=== PATIENT | female | born 1995 | race Two or more races ===

== ENCOUNTER 2017-04-09 17:36 | Emergency (ER) | payer MEDICAID, OTHER ==
[~2017-04-09] VITALS: Ht 172.7 cm; Wt 113.4 kg
[2017-04-09] MEDS ORDERED: Sodium Chloride 500ML 500 ML IV ONE (17:45)
--- NOTE | 2017-04-09 18:51 | Emergency Room Report ---
History of Present Illness General Chief Complaint: Abdominal Pain Source: Patient, EMS Present Illness HPI 22-year-old female presents to the emergency department complaining of 10 out of 10 in severity lower abdominal cramping in in addition to low back pain x2 days. Patient reports that she is approximately 8 weeks this was determined at an outpatient gynecological facility. Patient had 3 positive urine test and had blood work performed at clinic. Patient states she did not have ultrasound performed because she is between insurances at the moment. She denies vaginal bleeding however she reports progressive increase in her cramping over the course of 2 days. Patient reports history of ovarian cysts and was told that she would have a difficult time becoming and this was a surprise to her when she got up she was. Patient also reports body- aches, fevers x3 days measured at 102.2 at home. Since she's been taking Tylenol she also reports increasing fatigue, cough and sore throat. Patient states that she is not up-to-date with this years flu vaccination. She reports that this is her first therefore she is . She reports urinary urgency, intermittent dysuria. Denies urgency or hematuria. She reports nausea with one episode of vomiting 2 days ago. decreased appetite x 2 weeks. Denies neck pain, neck stiffness or photophobia. Denies blood in the vomit or stool. She denies constipation or diarrhea. Denies CP, Palpitations, LOC, AMS, dizziness, Changes in Vision, Sensation, paresthesias, or a sudden severe headache. Allergies: Coded Allergies: No Known Allergies (Unverified , 04/09/17) Patient History Past Medical History: see triage record Past Surgical History: none Pertinent Family History: none Last Menstrual Period: 8 weeks Now: Yes - 8 weeks Immunizations: UTD Reviewed Nursing Documentation: PMH: Agreed, PSxH: Agreed Nursing Documentation-PMH Past Medical History: No History, Except For Review of Systems All Other Systems: negative except mentioned in HPI Physical Exam Vital Signs Date Time Temp Pulse Resp B/P (MAP) Pulse Ox O2 Delivery O2 Flow Rate FiO2 04/09/17 17:28 99.0 100 18 190/100 99 Room Air Sp02 EP Interpretation: reviewed, normal General Appearance: no apparent distress, alert, GCS 15, non-toxic Head: normocephalic, atraumatic Eyes: bilateral eye normal inspection, bilateral eye PERRL ENT: hearing grossly normal, normal voice, TMs + canals normal, uvula midline, pharyngeal erythema Neck: full range of motion, no meningismus, no bony tend Respiratory: chest non-tender, lungs clear, normal breath sounds, speaking full sentences Cardiovascular #1: regular rate, rhythm, tachycardia Gastrointestinal: normal bowel sounds, non tender, soft, no guarding, no rebound, other - Negative [place] signs, Negative MacBurney's sign, Negative Rosvigns Sign, Negative Psoas, No Peritoneal signs. Rectal: deferred Genitourinary: normal inspection, no CVA tenderness Musculoskeletal: back normal, gait/station normal, normal range of motion, non- tender Neurologic: alert, oriented x3, responsive, motor strength/tone normal, sensory intact, speech normal Skin: normal color, no rash, warm/dry, well hydrated Medical Decision Making PA Attestation Dr. lagos is my supervising Physician whom patient management has been discussed with. Diagnostic Impression: Primary Impression: Abdominal pain Qualified Codes: R10.84 - Generalized abdominal pain Additional Impressions: Positive test Viral syndrome Threatened in early ER Course 22-year-old female presents to the emergency department complaining of 10 out of 10 in severity lower abdominal cramping in in addition to low back pain x2 days. Patient reports that she is approximately 8 weeks this was determined at an outpatient gynecological facility. Patient had 3 positive urine test and had blood work performed at clinic. Patient states she did not have ultrasound performed because she is between insurances at the moment. She denies vaginal bleeding however she reports progressive increase in her cramping over the course of 2 days. Patient reports history of ovarian cysts and was told that she would have a difficult time becoming and this was a surprise to her when she got up she was. Patient also reports body- aches, fevers x3 days measured at 102.2 at home. Since she's been taking Tylenol she also reports increasing fatigue, cough and sore throat. Patient states that she is not up-to-date with this years flu vaccination. She reports that this is her first therefore she is . She reports urinary urgency, intermittent dysuria. Denies urgency or hematuria. She reports nausea with one episode of vomiting 2 days ago. decreased appetite x 2 weeks. Denies neck pain, neck stiffness or photophobia. Denies blood in the vomit or stool. She denies constipation or diarrhea. Denies CP, Palpitations, LOC, AMS, dizziness, Changes in Vision, Sensation, paresthesias, or a sudden severe headache. Ddx considered but are not limited to: Fibroid, ectopic , Fibroid, Spontaneous ,Ovarian cyst, Viral syndrome, influenza, Viral GE just to name a few. Vital signs: are WNL, pt. is afebrile -- triage bp was elevated, repeat VS were wnl. ORDERS: -Urine hcg- Positive -serum Hcg Quant: 805 - Blood/RH type and screen- see attached labs -Pelvic US complete- Gestational Sac noted intrauterine estimated at 4 weeks gestation. no HR at this time. ED INTERVENTIONS: -NS Bolus -Tylenol PO DISCHARGE: At this time pt. is stable for d/c to home. Will provide printed patient care instructions, and any necessary prescriptions. Care plan and follow up instructions have been discussed with the patient prior to discharge. Labs Test 04/09/17 19:00 White Blood Count 5.8 K/UL (4.8-10.8) Red Blood Count 4.92 M/UL (4.20-5.40) Hemoglobin 12.5 G/DL (12.0-16.0) Hematocrit 40.6 % (37.0-47.0) Mean Corpuscular Volume 83 FL (80-99) Mean Corpuscular Hemoglobin 25.5 PG (27.0-31.0) Mean Corpuscular Hemoglobin Concent 30.8 G/DL (32.0-36.0) Red Cell Distribution Width 12.8 % (11.6-14.8) Platelet Count 212 K/UL (150-450) Mean Platelet Volume 8.0 FL (6.5-10.1) Neutrophils (%) (Auto) 64.0 % (45.0-75.0) Lymphocytes (%) (Auto) 21.3 % (20.0-45.0) Monocytes (%) (Auto) 13.7 % (1.0-10.0) Eosinophils (%) (Auto) 0.0 % (0.0-3.0) Basophils (%) (Auto) 1.0 % (0.0-2.0) Urine Color Yellow Urine Appearance Clear Urine pH 6 (4.5-8.0) Urine Specific [place] 1.020 (1.005-1.035) Urine Protein 1+ (NEGATIVE) Urine Glucose (UA) Negative (NEGATIVE) Urine Ketones 3+ (NEGATIVE) Urine Occult Blood 3+ (NEGATIVE) Urine Nitrite Negative (NEGATIVE) Urine Bilirubin Negative (NEGATIVE) Urine Urobilinogen 1 MG/DL (0.0-1.0) Urine Leukocyte Esterase 1+ (NEGATIVE) Urine RBC 5-10 /HPF (0 - 2) Urine WBC 2-4 /HPF (0 - 2) Urine Squamous Epithelial Cells Few /LPF (NONE/OCC) Urine Bacteria Few /HPF (NONE) Sodium Level 136 MMOL/L (136-145) Potassium Level 3.5 MMOL/L (3.5-5.1) Chloride Level 101 MMOL/L (98-107) Carbon Dioxide Level 24 MMOL/L (21-32) Anion Gap 11 mmol/L (5-15) Blood Urea Nitrogen 10 mg/dL (7-18) Creatinine 0.7 MG/DL (0.55-1.30) Estimat Glomerular Filtration Rate > 60 mL/min (>60) Glucose Level 88 MG/DL (74-106) Calcium Level 7.9 MG/DL (8.5-10.1) Total Bilirubin 0.3 MG/DL (0.2-1.0) Aspartate Amino Transf (AST/SGOT) 36 U/L (15-37) Alanine Aminotransferase (ALT/SGPT) 37 U/L (12-78) Alkaline Phosphatase 67 U/L (46-116) Total Protein 8.0 G/DL (6.4-8.2) Albumin 3.9 G/DL (3.4-5.0) Globulin 4.1 g/dL Albumin/Globulin Ratio 1.0 (1.0-2.7) Lipase 114 U/L (73-393) Human Chorionic Gonadotropin, Quant 805 mIU/mL (1-6) CT/MRI/US Diagnostic Results CT/MRI/US Diagnostic Results : Imaging Test Ordered: Pelvic US complete Impression - Gestational Sac noted intrauterine estimated at 4 weeks gestation. no HR at this time. Last Vital Signs Date Time Temp Pulse Resp B/P (MAP) Pulse Ox O2 Delivery O2 Flow Rate FiO2 04/09/ 17:28 99.0 100 18 190/100 99 Room Air Disposition: HOME, SELF-CARE Condition: Stable Scripts Dextromethorphan Hbr (TUSSIN COUGH) 15 Mg Capsule 15 MG PO Q6HR, #118 CAP Prov: Carlee Rubio 04/09/17 Vit #91/Fe Fum/Fa/Dha ( + DHA COMBO PACK) 1 Each Combo..pkg 1 EACH PO DAILY, #1 PACK 3 Refills Prov: Carlee Rubio 04/09/17 Acetaminophen* (TYLENOL EXTRA STRENGTH*) 500 Mg Tablet 500 MG ORAL Q6H Y for Mild Pain/Temp > 100.5, #30 TAB 0 Refills Prov: Carlee Rubio 04/09/17 Patient Instructions: Abdominal Pain During , Threatened Miscarriage, [id number] Additional Instructions: Take medications as directed. Follow up with a OBGYN within 3 days, even if your symptoms have resolved. --- [facility] , Ultrasound showed : Intrauterine gestational sac of approx 4 weeks , with no HR detected at this time. Return sooner to ED if new symptoms occur, or current symptoms become worse. - Please note that this Emergency Department Report was dictated using [employer] assistant technology software, occasionally this can lead to erroneous entry secondary to interpretation by the dictation equipment. Carlee Rubio Apr 09, 2017 18:51
[2017-04-09 19:44] LABS: HEMATOCRIT 40.6 % (37.0-47.0); HEMOGLOBIN 12.5 G/DL (12.0-16.0); LYMPHOCYTES % (AUTO) 21.3 % (20.0-45.0); MEAN CORPUSCULAR VOLUME 83 FL (80-99); MONOCYTES % (AUTO) 13.7 % (1.0-10.0); PLATELET COUNT 212 K/UL (150-450); RED BLOOD COUNT 4.92 M/UL (4.20-5.40); RED CELL DISTRIBUTION WIDTH 12.8 % (11.6-14.8); WHITE BLOOD COUNT 5.8 K/UL (4.8-10.8)
[2017-04-09 19:45] LABS: APPEARANCE,URINE CLEAR; BILIRUBIN, URINE NEGATIVE (NEGATIVE); GLUCOSE, URINE (UA) NEGATIVE (NEGATIVE); KETONES,URINE 3+ (NEGATIVE); LEUKOCYTE ESTERASE ,URINE 1+ (NEGATIVE); NITRITE,URINE NEGATIVE (NEGATIVE); PH,URINE 6 (4.5-8.0); PROTEIN,URINE 1+ (NEGATIVE); UROBILINOGEN,URINE 1 MG/DL (0.0-1.0)
[2017-04-09 19:47] LABS: COLOR,URINE YELLOW
[2017-04-09 19:56] LABS: ANION GAP 11 mmol/L (5-15); BLOOD UREA NITROGEN 10 mg/dL (7-18); CALCIUM 7.9 MG/DL (8.5-10.1); CARBON DIOXIDE 24 MMOL/L (21-32); CHLORIDE 101 MMOL/L (98-107); CREATININE 0.7 MG/DL (0.55-1.30); POTASSIUM 3.5 MMOL/L (3.5-5.1); SODIUM 136 MMOL/L (136-145)
[2017-04-09 20:01] LABS: ALANINE AMINOTRANSFERASE 37 U/L (12-78); ALBUMIN 3.9 G/DL (3.4-5.0); ALKALINE PHOSPHATASE 67 U/L (46-116); ASPARTATE AMINO TRANSFERASE 36 U/L (15-37); BILIRUBIN,TOTAL 0.3 MG/DL (0.2-1.0)
[2017-04-09 22:13] VITALS: BP_SYST 10; BP_SYST 110; BP_DIAS 78
[2017-04-09] MEDS ORDERED: TYLENOL EXTRA500 MG ORAL (22:44)
[2017-04-09] MEDS ORDERED: PRENATAL + DHA1 EAC1 PO (22:44)
[2017-04-09] MEDS ORDERED: TUSSIN COUGH15 MG PO (22:49)
[2017-04-09 22:58] VITALS: BP 101/76
[2017-04-09 23:05] VITALS: BP 101/76
--- NOTE | 2017-04-10 12:32 | Diagnostic Imaging Report ---
Indication: Pelvic pain Technique: Grayscale and duplex Doppler imaging of the pelvis performed utilizing a transabdominal scan and endovaginal scan. Comparison: None Findings: Tiny cystic structure noted in the central part of the uterus with surrounding double decidual sign. There is no yolk sac or pole identified. The measurement of the cyst is too small to date. Correlation with quantitative beta hCG recommended. Also while follow-up ultrasound suggested. The ovaries are seen and appear normal with dopplerable blood flow. The right ovary measures 1.9 x 1.7 x 1.5 cm. Left ovary 2.3 x 2.4 x 1.8 cm. There is no free fluid. IMPRESSION: Possible early intrauterine . Findings at this point are nonspecific. Ectopic is not excluded. Correlation with quantitative beta hCG obtained in series and follow-up ultrasound recommended. [facility] has communicated the preliminary results to the Emergency Department. Their findings are largely concordant with this report.
== END 2017-04-09 23:05 | disposition home or self-care (01) ==
LOC: EDBD 17:36 → EMR 17:50
DX: O26.891 Other specified pregnancy related conditions, first trimester (principal); M54.5 Low back pain; B34.9 Viral infection, unspecified; O20.0 Threatened abortion; Z3A.08 8 weeks gestation of pregnancy
CPT/HCPCS: 36415; 76801; 80053; 81003; 83690; 84702; 85025; 86850; 86900; 86901; 96360; 99284; J7040; 76856